=== PATIENT | male | born 1965 | race Caucasian/White ===

== ENCOUNTER 2019-12-01 12:26 | Outpatient (CLI) | payer MEDICARE, SELFPAY ==
[2019-12-01 13:14] LABS: Basophils Absolute Auto 0.1 K/mm3 (0.0-0.1); Basophils Percent Auto 0.7 % (0.2-1.2); Eosinophils Absolute Auto 0.4 K/mm3 (0-0.3); Hematocrit 44.3 % (42.0-52.0); Hemoglobin 15.1 g/dL (14.0-18.0); Immature Granulocyte Absolute 0.07 K/mm3 (0.00-0.031); Immature Granulocyte Percent A 0.7 % (0-0.5); Lymphocytes Absolute Auto 1.98 K/mm3 (0.9-3.2); Mean Corpuscular HGB Conc 34.1 g/dl (32-36); Mean Corpuscular Hemoglobin 29.4 pg (26-34); Mean Corpuscular Volume 86.4 fl (80-100); Mean Platelet Volume 9.3 fl (7.4-10.4); Monocytes Absolute Auto 0.9 K/mm3 (0.1-0.6); Monocytes Percent Auto 9.2 % (2.6-8.5); Neutrophils Absolute Auto 6.1 K/mm3 (1.3-6.7); Neutrophils Percent Auto 64.4 % (45.5-73.1); Platelet Count Result 268 k/mm3 (150-375); Red Blood Count 5.13 M/mm3 (4.6-6.20); Red Cell Distribution Width 13.1 % (11.5-14.5); White Blood Count 9.4 K/mm3 (4.5-10.0)
[2019-12-01 13:33] LABS: Alanine Aminotransferase 18 U/L (4-50); Albumin Level 4.6 g/dL (3.5-5.1); Alkaline Phosphatase 73 U/L (38-126); Aspartate Amino Transferase 26 U/L (17-59); Bilirubin,Total 0.4 mg/dL (0.2-1.3); Blood Urea Nitrogen 13 mg/dL (9-20); Calcium 9.4 mg/dL (8.4-10.2); Carbon Dioxide 22 mmol/L (22-30); Chloride 101 mmol/L (98-107); Cholesterol 183 mg/dL (0-200); Estimated Glomerular Filt Rate > 60; Glucose 101 mg/dL (75-110); HDL Direct 50 mg/dL; Potassium 3.6 mmol/L (3.4-5.0); Sodium 133 mmol/L (137-145); Triglycerides 71 mg/dL (<150)
[2019-12-01 13:44] LABS: LDL Cholesterol Direct 106 mg/dL
[2019-12-01 14:02] LABS: Thyroid Stimulating Hormone 0.591 uIU/mL (0.465-4.680); Total Triiodothyronine (T3) 1.35 NG/ML (0.97-1.69)
[2019-12-01 14:05] LABS: Free T4 Free Thyroxine 1.18 ng/mL (0.78-2.19)
== END 2019-12-01 12:27 | disposition home or self-care (01) ==
PROVIDERS: PCP Family Medicine; Visit Provider Family Medicine
DX: E78.2 Mixed hyperlipidemia (principal); I10 Essential (primary) hypertension
CPT/HCPCS: 36415; 80053; 80061; 84439; 84443; 84480; 85025

== ENCOUNTER 2020-12-27 10:36 | Outpatient (CLI) | payer MEDICARE, SELFPAY ==
[2020-12-27 11:16] LABS: Basophils Absolute Auto 0.1 K/mm3 (0.0-0.1); Basophils Percent Auto 0.9 % (0.2-1.2); Eosinophils Absolute Auto 0.3 K/mm3 (0-0.3); Eosinophils Percent Auto 2.5 % (0-4.4); Hematocrit 47.9 % (42.0-52.0); Hemoglobin 16.9 g/dL (14.0-18.0); Immature Granulocyte Absolute 0.09 K/mm3 (0.00-0.031); Immature Granulocyte Percent A 0.8 % (0-0.5); Lymphocytes Percent Auto 18.4 % (18.3-44.2); Mean Corpuscular HGB Conc 35.3 g/dl (32-36); Mean Corpuscular Hemoglobin 31.1 pg (26-34); Mean Corpuscular Volume 88.2 fl (80-100); Mean Platelet Volume 8.7 fl (7.4-10.4); Monocytes Absolute Auto 0.9 K/mm3 (0.1-0.6); Monocytes Percent Auto 7.7 % (2.6-8.5); Neutrophils Percent Auto 69.7 % (45.5-73.1); Platelet Count Result 339 k/mm3 (150-375); Red Blood Count 5.43 M/mm3 (4.6-6.20); Red Cell Distribution Width 12.3 % (11.5-14.5); White Blood Count 11.4 K/mm3 (4.5-10.0)
[2020-12-27 11:25] LABS: Alanine Aminotransferase 17 U/L (4-50); Albumin Level 4.4 g/dL (3.5-5.1); Alkaline Phosphatase 86 U/L (38-126); Anion Gap 8 mmol/L (8-16); Aspartate Amino Transferase 28 U/L (17-59); Bilirubin,Total 0.6 mg/dL (0.2-1.3); Blood Urea Nitrogen 9 mg/dL (9-20); Calcium 10.1 mg/dL (8.4-10.2); Carbon Dioxide 28 mmol/L (22-30); Chloride 101 mmol/L (98-107); Cholesterol 213 mg/dL (0-200); Estimated Glomerular Filt Rate > 60; Glucose 104 mg/dL (75-110); HDL Direct 56 mg/dL; Potassium 3.6 mmol/L (3.4-5.0); Sodium 137 mmol/L (137-145); Triglycerides 229 mg/dL (<150)
[2020-12-27 11:36] LABS: LDL Cholesterol Direct 123 mg/dL
[2020-12-27 11:42] LABS: Creatinine Urine 12.4 mg/dL
[2020-12-27 11:56] LABS: Prostate Specific Antigen 1.2 ng/mL (< OR = 4.0); Total Triiodothyronine (T3) 1.42 NG/ML (0.97-1.69)
[2020-12-27 12:08] LABS: Microalbumin Urine Random < 6.0 mg/L (0-16.7)
[2020-12-27 12:15] LABS: Free T4 Free Thyroxine 1.18 ng/mL (0.78-2.19); Vitamin D 25 Hydroxy 26.3 ng/mL
== END 2020-12-27 10:37 | disposition home or self-care (01) ==
LOC: ANHLAB 10:40
PROVIDERS: PCP Family Medicine; Visit Provider Nurse Practitioner
DX: J44.9 Chronic obstructive pulmonary disease, unspecified (principal); F31.9 Bipolar disorder, unspecified; I10 Essential (primary) hypertension; J44.1 Chronic obstructive pulmonary disease with (acute) exacerbation; E66.9 Obesity, unspecified; E78.2 Mixed hyperlipidemia; Z12.5 Encounter for screening for malignant neoplasm of prostate; E55.9 Vitamin D deficiency, unspecified
CPT/HCPCS: 36415; 80053; 80061; 82043; 82306; 84153; 84439; 84443; 84480; 85025; G0103

== ENCOUNTER 2022-03-20 18:31 | Emergency (ER) | payer MEDICARE, SELFPAY ==
[2022-03-20 18:34] VITALS: BP 152/94; PULSE 89; RESP 16; TEMP 37.1; O2SAT 100
[2022-03-20 19:02] LABS: Basophils Absolute Auto 0.1 K/mm3 (0.0-0.1); Basophils Percent Auto 0.7 % (0.2-1.2); Eosinophils Absolute Auto 0.1 K/mm3 (0-0.3); Eosinophils Percent Auto 0.3 % (0-4.4); Hematocrit 48.2 % (42.0-52.0); Hemoglobin 16.7 g/dL (14.0-18.0); Immature Granulocyte Absolute 0.07 K/mm3 (0.00-0.031); Immature Granulocyte Percent A 0.5 % (0-0.5); Lymphocytes Absolute Auto 2.82 K/mm3 (0.9-3.2); Lymphocytes Percent Auto 18.5 % (18.3-44.2); Mean Corpuscular HGB Conc 34.6 g/dl (32-36); Mean Corpuscular Hemoglobin 30.8 pg (26-34); Mean Corpuscular Volume 88.8 fl (80-100); Monocytes Absolute Auto 0.9 K/mm3 (0.1-0.6); Monocytes Percent Auto 5.8 % (2.6-8.5); Neutrophils Absolute Auto 11.3 K/mm3 (1.3-6.7); Neutrophils Percent Auto 74.2 % (45.5-73.1); Platelet Count Result 245 k/mm3 (150-375); Red Blood Count 5.43 M/mm3 (4.6-6.20); Red Cell Distribution Width 13.1 % (11.5-14.5); White Blood Count 15.2 K/mm3 (4.5-10.0)
--- NOTE | 2022-03-20 19:04 | PC.NURSE ---
pt reports to solution maker that he was going to overdose on his medications. when asking pt is he was having any SI he states yes, but does not have plan.
[2022-03-20 19:07] LABS: Appearance Urine Clear (Clear); Bilirubin Urine Negative (Negative); Glucose Urine UA Negative (Negative); Ketones Urine Negative (Negative); Leukocyte Esterase Ur Negative LEU/UL (Negative); Nitrate Urine Negative (Negative); Protein Urine Negative (Negative); Urobilinogen Urine 0.2 mg/dL (<2.0)
[2022-03-20 19:13] LABS: Bacteria Urine Trace /hpf; Mucus Urine Rare /lpf; RBC Urine 0-2 /hpf (0-2); WBC Urine 0-3 /hpf
[2022-03-20 19:15] LABS: Acetaminophen < 10 ug/mL (10-30); Ethanol < 10 mg/dL (<10); Salicylate < 1.0 mg/dL (2-20)
[2022-03-20 19:16] LABS: Alanine Aminotransferase 17 U/L (6-50); Albumin Level 4.9 g/dL (3.5-5.1); Alkaline Phosphatase 81 U/L (38-126); Anion Gap 12 mmol/L (8-16); Aspartate Amino Transferase 22 U/L (17-59); Bilirubin,Total 0.6 mg/dL (0.2-1.3); Blood Urea Nitrogen 11 mg/dL (9-20); Calcium 9.5 mg/dL (8.4-10.2); Carbon Dioxide 26 mmol/L (22-30); Chloride 102 mmol/L (98-107); Estimated CRCL calculation 72 ml/min; Estimated Glomerular Filt Rate > 60; Glucose 114 mg/dL (65-110); Potassium 3.8 mmol/L (3.4-5.0); Sodium 140 mmol/L (137-145)
[2022-03-20 19:20] LABS: Amphetamine Screen Urine Negative (Negative); Barbiturate Screen Urine Negative (Negative); Benzodiazepines Screen Urine Negative (Negative); Cannabinoid Screen Urine Negative (Negative); Cocaine Screen Urine Negative (Negative); Methadone Screen Urine Negative (Negative); Opiate Screen Urine Negative (Negative); Phencyclidine Screen Urine Negative (Negative)
--- NOTE | 2022-03-20 19:29 | ED.ANXIETY ---
HPI - Anxiety General Chief Complaint: Anxiety <Izabela Gomez MD - Last Filed: 03/21/22 07:13> Stated Complaint: memory loss and shakiness for approx 6 months <Izabela Gomez MD - Last Filed: 03/21/22 07:13> Time Seen by Provider: 03/20/22 18:49 <Izabela Gomez MD - Last Filed: 03/21/22 07:13> History of Present Illness HPI narrative: 56-year-old male with history of bipolar disorder states he thinks he is having a nervous breakdown, states he has been stressed recently and that being homeless makes things worse. He has multiple psych meds that he takes intermittently last dose yesterday. Denies any other complaints other than chronic memory loss and hands shaking. <Izabela Gomez MD - Last Filed: 03/21/22 07:13> Related Data Allergies/Adverse Reactions: Allergies Allergy/AdvReac Type Severity Reaction Status Date / Time No Known Allergies Allergy Verified 03/20/22 18:32 <Izabela Gomez MD - Last Filed: 03/21/22 07:13> Review of Systems Review of Systems: CONST: No fever. HEENT: No sore throat C/V: No chest pain RESP: No cough GI: No abdominal pain : No dysuria. M/S: No joint pain. SKIN: No rash. NEURO: Tremors in BUE PSYCH: Stressed out <Izabela Gomez MD - Last Filed: 03/21/22 07:13> PMFSH Past Medical History Medical History: Medical History Bipolar 1 disorder <Izabela Gomez MD - Last Filed: 03/21/22 07:13> Social History Social History: Social History Substance use type: does not use <Izabela Gomez MD - Last Filed: 03/21/22 07:13> Exam Narrative: EXAMINATION OF ORGAN SYSTEMS/BODY AREAS: Constitutional: Vital signs per nursing GENERAL:[No acute distress, non-toxic appearing.] Resting comfortably in bed. HEAD: Normal with no signs of head trauma. EYES: EOMI, conjunctiva normal ENT: Hearing grossly intact LUNGS: Nonlabored breathing. HEART: [Regular rate and rhythm] ABD: [Soft], nondistended EXT: Normal range of motion SKIN: [No rashes or lesions.] NEURO: [Alert and oriented x 3. When gesturing with his hands has no tremors whatsoever; has an exaggerated tremor when demonstrating his hands shaking.] PSYCH: Normal affect, calm and cooperative; stating he is mostly here to get out of the rain, when asked about SI, he states he has had thoughts about SI due to his psychiatric diagnosis but not having thoughts of hurting himself <Izabela Gomez MD - Last Filed: 03/21/22 07:13> Course Course Emergency Course: 03/21/22699 care turned over to myself at shift change seen by myself agree with initial H&P 03/21/221899 care turned over Dr. White at shift change awaiting psychiatric placement and further disposition 03/22/22699 care turned over to myself at shift change. Currently resting in bed no complaints at this time awaiting psychiatric placement Patient reevaluated by crisis ticket printer and tagger patient currently denying suicidal ideation myself or the ticket printer and tagger at this time it is felt that the patient may be discharged home with a safety plan Patient reevaluated myself denies any suicidal homicidal ideation Discussed with patient results of workup and diagnosis. Discussed need for follow-up with primary care, proper use of medication, and reasons to return to the emergency department. Patient understands and agrees to current treatment plan <Timmy Kong DO - Last Filed: 03/22/22 14:32> Vital Signs Vital signs: Vital Signs Temperature 98.7 F 03/20/22 18:34 Pulse Rate 89 03/20/22 18:34 Respiratory Rate 16 03/20/22 18:34 Blood Pressure 152/94 H 03/20/22 18:34 Pulse Oximetry 100 03/20/22 18:34 Oxygen Delivery Room Air 03/20/22 18:34 Temperature 97.2 F L 03/22/22 07:16 Pulse Rate 63 03/22/22 07:16 Respiratory Rate 16 03/20/22 18:34 Blood Pressure 137/79 03/22/22 07:16 Pulse Oximetry 99 03/22/22 07:16 Oxygen Delivery R
[2022-03-20 19:37] LABS: Add Urine Microscopic? YES; Blood Urine Trace-Intact (Negative); Color Urine Light Yellow (Yellow)
[2022-03-20 20:57] LABS: SARS-CoV-2 RNA PCR Negative
--- NOTE | 2022-03-20 22:23 | PC.NURSE ---
per [employer] worker María Elena pt will be voluntary admission, [facility]
--- NOTE | 2022-03-21 06:33 | PC.NURSE ---
okay to pull sitter per GINA Gomez at this time
[2022-03-21 11:39] VITALS: BP 112/78; PULSE 77; TEMP 36.6; O2SAT 98
--- NOTE | 2022-03-21 15:11 | PC.NURSE ---
Patient going phone assessment with Ron at [facility].
[2022-03-21] MEDS: NICOTINE (*PBKC) 21 MG PATCH 1 PATCH TRANSDERM (15:53)
[2022-03-21] MEDS: IBUPROFEN 600 MG TABLET PO (15:53)
--- NOTE | 2022-03-21 19:09 | PC.NURSE ---
Patient care report given to MICHELLE Shelley. All questions answered at this time.
[2022-03-21] MEDS: ACETAMINOPHEN 325 MG TABLET 650 MG PO (21:43)
[2022-03-22 07:16] VITALS: BP 137/79; PULSE 63; TEMP 36.2; O2SAT 99
--- NOTE | 2022-03-22 07:19 | PC.NURSE ---
Patient report received from MICHELLE Shelley. All questions answered and care of patient assumed.
[2022-03-22] MEDS: IBUPROFEN 600 MG TABLET PO (07:50)
--- NOTE | 2022-03-22 10:39 | PC.NURSE ---
Spoke with Franca at [facility]. She states that the [employer] manager food beverage will be here this morning to perform a repeat assessment of the patient. Patient appears to be asleep at this time. Eyes closed with regular, non-labored respirations.
--- NOTE | 2022-03-22 11:19 | PC.NURSE ---
Patient report given to MICHELLE Villeda. All questions answered and care of patient transferred.
[2022-03-22 15:47] VITALS: BP 130/88; PULSE 86; RESP 14; O2SAT 98
== END 2022-03-22 15:50 | disposition home or self-care (01) ==
PROVIDERS: Emergency Medicine; Emergency Provider Emergency Medicine; PCP Family Medicine
DX: F31.9 Bipolar disorder, unspecified (principal); Z59.00 Homelessness unspecified; Z20.822 Contact with and (suspected) exposure to COVID-19; Z79.899 Other long term (current) drug therapy
CPT/HCPCS: 36415; 80053; 80307; 81001; 84443; 85025; 99284; A9270; C9803; U0003; U0005